=== PATIENT | male | born 1995 | race Caucasian/White ===

== ENCOUNTER 2023-12-04 15:25 | Emergency (ER) | payer OTHER ==
[2023-12-04] MEDS ORDERED: Lidocaine 1% w/Epinephrine 1:100K 20 ML VIAL ONE (15:45)
[2023-12-04] MEDS ORDERED: Boostrix 0.5 ML (Tdap) VIAL (>/=7 yrs of age) ONE (16:15)
[2023-12-04] MEDS ORDERED: Bacitracin 1 PK ONE (16:25)
== END 2023-12-04 16:50 | disposition home or self-care (01) ==
LOC: ERS 15:25
DX: S61.011A Laceration without foreign body of right thumb without damage to nail, initial encounter (principal); Z23 Encounter for immunization; W25.XXXA Contact with sharp glass, initial encounter
CPT/HCPCS: 12001; 90471; 90715